=== PATIENT | male | born 1965 | race Caucasian/White ===

== ENCOUNTER 2017-08-01 10:19 | Observation (INO) | payer BC ==
[2017-08-01] MEDS ORDERED: ASPIRIN 81 MG CHEWABLE TABLET PO ONE (10:24)
[2017-08-01] MEDS: NITROGLYCERIN 0.4MG SL TABLET #25 BTL SL PRN ×3 (10:32→10:42)
[2017-08-01 10:44] LABS: BASO % 0.2 % (0-6); EOS % 3.5 % (0-6); GRAN % 59.4 % (47-80); HEMATOCRIT 45.9 % (42.0-52.0); HEMOGLOBIN 15.4 gm/dl (14.0-18.0); LYMPH % 29.2 % (16-45); MEAN CELL VOLUME 88.3 fl (81-97); MEAN CORPUSCULAR HEMOGLOBIN 29.6 pg (27-33); MEAN CORPUSCULAR HGB CONC 33.6 g/dl (32-36); MEAN PLATELET VOLUME 10.9 fl (7.4-10.4); MONO % 7.7 % (0-9); PLATELET COUNT 236 K/uL (130-400); RED CELL DISTRIBUTION WIDTH 13.2 % (11.5-14.5); WHITE BLOOD COUNT W/O DIFF 5.7 K/uL (4.2-12.2)
--- NOTE | 2017-08-01 11:01 | Emergency Department Record ---
History of Present Illness - General Chief complaint: Lower Extremity Pain Stated complaint: LEG PAIN Time Seen by Provider: 08/01/17 10:24 Source: Patient Mode of Arrival: Wheelchair Limitations: No limitations - History of Present Illness Initial comments: pt was brought over from [facility]. he had been seen by them yesterday for chest pain. he comes back today c/o chest pain and leg pain and weakness. he denies numbness MD Complaint: Extremity pain, Other Onset/Timin -: Hour(s) Location: Right, Lower Leg History of Same: No Severity scale (1-10): 6 Quality: Aching, Sharp Consistency: Constant Improves with: Nothing Worsens with: Nothing Associated Symptoms: Chest pain - Related Data Allergies Allergy/AdvReac Type Severity Reaction Status Date / Time naproxen [From Naprosyn] Allergy ABDOMINAL Unverified 08/01/17 10:05 PAIN Travel Screening - Travel/Exposure Within Last 30 Days Have you traveled within the last 30 days?: No Review of Systems Reviewed: No additional complaints except as noted below Constitutional: Reports: As per HPI. Denies: Chills, Fever, Malaise, Night sweats, Weakness, Weight change Eyes: Reports: As per HPI. Denies: Eye discharge, Eye pain, Photophobia, Vision change ENT: Reports: As per HPI. Denies: Congestion, Dental pain, Ear pain, Epistaxis , Hearing loss, Throat pain Respiratory: Reports: As per HPI. Denies: Cough, Dyspnea, Hemoptysis, Stridor, Wheezes Cardiovascular: Reports: As per HPI. Denies: Arrhythmia, Chest pain, Dyspnea on exertion, Edema, Murmurs, Orthopnea, Palpitations, Paroxysmal nocturnal dyspnea, Rheumatic Fever, Syncope Endocrine: Reports: As per HPI. Denies: Fatigue, Heat or cold intolerance, Polydipsia, Polyuria Gastrointestinal: Reports: As per HPI. Denies: Abdominal pain, Constipation, Diarrhea, Hematemesis, Hematochezia, Melena, Nausea, Vomiting Genitourinary: Reports: As per HPI. Denies: Dysuria, Frequency, Hematuria, Incontinence, Retention, Testicular pain, Testicular mass, Urgency Musculoskeletal: Reports: As per HPI. Denies: Arthralgia, Back pain, Gout, Joint swelling, Myalgia, Neck pain Skin: Reports: As per HPI. Denies: Bruising, Change in color, Change in hair/ nails, Lesions, Pruritus, Rash Neurological: Reports: As per HPI. Denies: Abnormal gait, Confusion, Headache, Numbness, Paresthesias, Seizure, Tingling, Tremors, Vertigo, Weakness Psychiatric: Reports: As per HPI. Denies: Anxiety, Auditory hallucinations, Depression, Homicidal thoughts, Suicidal thoughts, Visual hallucinations Hematological/Lymphatic: Reports: As per HPI. Denies: Anemia, Blood Clots, Easy bleeding, Easy bruising, Swollen glands Past Medical History - SOCIAL HISTORY Smoking Status: Former smoker Alcohol Use: Rare Drug Use: None - RESPIRATORY Hx Respiratory Disorders: No - CARDIOVASCULAR Hx Cardio Disorders: Yes Hx Hypertension: Yes - NEURO Hx Neuro Disorders: No - GI Hx GI Disorders: No - Hx Genitourinary Disorders: No - ENDOCRINE Hx Endocrine Disorders: No - MUSCULOSKELETAL Hx Musculoskeletal Disorders: No - PSYCH Hx Psych Problems: No - HEMATOLOGY/ONCOLOGY Hx Hematology/Oncology Disorders: No Family Medical History Any Significant Family History?: Yes Hx Cancer: Father Hx Diabetes: Mother, Brother/Sister Hx HTN: Father Physical Exam - General General Appearance: Alert, Oriented x3, Cooperative, Mild distress - Head Head exam: Normal inspection - Eye Eye exam: Normal appearance, PERRL, EOMI Pupils: Normal accommodation - ENT ENT exam: Normal exam, Mucous membranes moist, Normal external ear exam, Normal orophraynx, TM's normal bilaterally Ear exam: Normal external inspection. negative: External canal tenderness Nasal Exam: Normal inspection. negative: Discharge, Sinus tenderness Mouth exam: Normal external inspection, Tongue normal Teeth exam: Normal inspection. negative: Dental caries Throat exam: Normal inspection. negative: Tonsillar erythema, Tonsillar exudate - Neck Neck exam: Normal inspection, Full ROM. negative: Tenderness - Respiratory Respiratory exam: Normal lung sounds bilaterally. negative: Respiratory distress - Cardiovascular Cardiovascular Exam: Regular rate, Normal rhythm, Normal heart sounds - GI/Abdominal GI/Abdominal exam: Soft, Normal bowel sounds. negative: Tenderness - Rectal Rectal exam: Deferred - exam: Deferred - Extremities Extremities exam: Normal inspection, Full ROM, Normal capillary refill. negative: Tenderness - Back Back exam: Reports: Normal inspection, Full ROM. 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 pts leg symptoms appear to be more radicular in nature Medical Decision Making - Lab Data Result diagrams: 08/01/17 10:20 08/01/17 10:20 Lab Results 08/01/17 Range/Units 10:20 WBC 5.7 (4.2-12.2) K/uL RBC 5.20 (4.40-5.70) M/uL Hgb 15.4 (14.0-18.0) gm/dl Hct 45.9 (42.0-52.0) % MCV 88.3 (81-97) fl MCH 29.6 (27-33) pg MCHC 33.6 (32-36) g/dl RDW 13.2 (11.5-14.5) % Plt Count 236 (130-400) K/uL MPV 10.9 H (7.4-10.4) fl Gran % 59.4 (47-80) % Lymphocytes % 29.2 (16-45) % Monocytes % 7.7 (0-9) % Eosinophils % 3.5 (0-6) % Basophils % 0.2 (0-6) % Disposition Disposition: Admit Clinical Impression: Sciatic leg pain Chest pain Qualifiers: Chest pain type: unspecified Qualified Code(s): R07.9 - Chest pain, unspecified Disposition: Still a Patient at [facility] Decision to Admit: Admit from ER Decision to Admit Date: 08/01/17 Decision to Admit Time: 12:30 Forms: Patient Portal Access Quality - Quality Measures Quality Measures: N/A - Blood Pressure Screening Does Patient Have Any of the Following: No Blood Pressure Classification: Hypertensive Reading Systolic Measurement: 153 Diastolic Measurement: 98 Screening for High Blood Pressure: < First Hypertensive BP, F/U Documented > [ [id number]] First Hypertensive Follow-up Interventions: Follow-up with rescreen GT 1 day and LT 4 weeks.
[2017-08-01 11:29] LABS: CKMB 8.2 ng/mL (<6.73); CREATININE 0.9 mg/dL (0.7-1.2); EST GLOMERULAR FILTRATION RATE > 60 mL/min; GLUCOSE,RANDOM 111 mg/dL (74-109)
[2017-08-01 11:31] LABS: TROPONIN I < 0.30 ng/mL (0.00-0.300)
[2017-08-01 11:45] LABS: CREATINE PHOSPHOKINASE 193 U/L (39-308)
--- NOTE | 2017-08-01 13:23 | RADIOLOGY REPORT ---
EXAM: CHEST, TWO VIEWS HISTORY: DIFFICULTY BREATHING. TECHNIQUE: Frontal and lateral views of the chest were performed. FINDINGS: The heart size is normal. The lung zheng are clear. No infiltrate or pleural effusion. IMPRESSION: NO ACUTE DISEASE PROCESS. JOB NUMBER: [id number] [facility]TDD
--- NOTE | 2017-08-01 13:25 | CT SCAN REPORT ---
EXAM: CT OF THE BRAIN WITHOUT CONTRAST HISTORY: PAIN. TECHNIQUE: Sequential axial images were obtained from the foramen magnum to the vertex without contrast administration. FINDINGS: The brain volume is normal. No large territorial infarct, hemorrhage , mass effect, or midline shift. No extraaxial fluid collection. The orbits, paranasal sinuses, and mastoid air cells are normal. IMPRESSION: NO ACUTE INTRACRANIAL ABNORMALITY. JOB NUMBER: [id number] [facility]
--- NOTE | 2017-08-01 13:26 | RADIOLOGY REPORT ---
EXAM: LUMBAR SPINE HISTORY: BACK PAIN. TECHNIQUE: AP, lateral and oblique views of the lumbar spine were performed. FINDINGS: There is normal vertebral body height and alignment. No evidence of fracture. No spondylolysis or spondylolisthesis. The neural foramen are patent. IMPRESSION: NEGATIVE LUMBAR SPINE EXAMINATION. JOB NUMBER: [id number] [facility]
[2017-08-01] MEDS ORDERED: ACETAMINOPHEN 500 MG TABLET PO PRN (14:05)
[2017-08-01] MEDS ORDERED: TEMAZEPAM 15 MG CAPSULE PO PRN (14:05)
[2017-08-01] MEDS ORDERED: NITROGLYCERIN 0.4MG SL TABLET #25 BTL SL PRN (14:05)
[2017-08-01] MEDS: AMLODIPINE BESYLATE 5MG TAB PO SCH (14:41)
[2017-08-01 16:17] LABS: BLOOD UREA NITROGEN 25 mg/dL (6-20)
--- NOTE | 2017-08-01 18:15 | History & Physical ---
History of Present Illness - Date of Service Date of Service for History & Physical: 08/01/17 - History of Present Illness Admitting Diagnosis: chest pain History of Present Illness: 51yo male with CC of left sided chest discomfort. He has history of uncontrolled blood pressure and is a former smoker. Patient was seen in [facility] on 07/31/17 with several day history of constant left sided chest discomfort. EKG was performed that showed NSR without ST changes. He was started on norvasc 10mg daily and scheduled for outpatient echo. Later that evening he started having some aching pain in his right anterior knee and medial ankle. The pain continued so he returned to [facility] yesterday. Due to his continued chest pain he was taken to the ED. While in the ED, patient had repeat EKG that continued to show normal sinus rhythm without ST changes. 1st set of cardiac enzymes showed troponin wnl range. CKMB index slightly high however total cpk wnl range. Patient had CXR which was negative for acute process. He was given full dose aspirin and nitro with resolution of his chest pain. Due to the lower extremity pain he also received head CT, lumbar XR that were negative for acute changes. Patient was admitted for serial enzymes 08/01/17- Patient states his chest pain has practically resolved. states it is maybe a 1 on pain scale. describes it as a discomfor in the left lower sternal area. the pain is constant and does not radiate. He says it is unchanged with rest or activity. He denies any shortness of breath, arm numbness, jaw pain, lower extremity swelling. He says the pain in the RLE has improved. reports is more like an ache in the medial, anterior portion of the knee and and medial anterior ankle. 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 denies any numbness/tingling in the RLE, no shooting type pain, no calf pain or swelling, and no rash or skin changes. pcp: [facility] Travel Screening - Travel/Exposure Within Last 30 Days Have you traveled within the last 30 days?: No - Travel/Exposure Within Last Year Have you traveled outside the [place] in the last year?: No - Additonal Travel Details Have you been exposed to anyone with a communicable illness?: No - Travel Symptoms Symptom Screening: None Review of Systems Constitutional: Reports: As per HPI. Denies: Chills, Fever, Malaise, Night sweats, Weakness, Weight change Eyes: Reports: As per HPI. Denies: Eye discharge, Eye pain, Photophobia, Vision change ENT: Reports: As per HPI. Denies: Congestion, Dental pain, Ear pain, Epistaxis , Hearing loss, Throat pain Respiratory: Reports: As per HPI. Denies: Cough, Dyspnea, Hemoptysis, Stridor, Wheezes Cardiovascular: Reports: As per HPI. Denies: Arrhythmia, Chest pain, Dyspnea on exertion, Edema, Murmurs, Orthopnea, Palpitations, Paroxysmal nocturnal dyspnea, Rheumatic Fever, Syncope Endocrine: Reports: As per HPI. Denies: Fatigue, Heat or cold intolerance, Polydipsia, Polyuria Gastrointestinal: Reports: As per HPI. Denies: Abdominal pain, Constipation, Diarrhea, Hematemesis, Hematochezia, Melena, Nausea, Vomiting Genitourinary: Reports: As per HPI. Denies: Dysuria, Frequency, Hematuria, Incontinence, Retention, Testicular pain, Testicular mass, Urgency Musculoskeletal: Reports: As per HPI. Denies: Arthralgia, Back pain, Gout, Joint swelling, Myalgia, Neck pain Skin: Reports: As per HPI. Denies: Bruising, Change in color, Change in hair/ nails, Lesions, Pruritus, Rash Neurological: Reports: As per HPI. Denies: Abnormal gait, Confusion, Headache, Numbness, Paresthesias, Seizure, Tingling, Tremors, Vertigo, Weakness Psychiatric: Reports: As per HPI. Denies: Anxiety, Auditory hallucinations, Depression, Homicidal thoughts, Suicidal thoughts, Visual hallucinations Hematological/Lymphatic: Reports: As per HPI. Denies: Anemia, Blood Clots, Easy bleeding, Easy bruising, Swollen glands Past Medical History - SOCIAL HISTORY Smoking Status: Former smoker Alcohol Use: Rare Drug Use: None - RESPIRATORY Hx Respiratory Disorders: No - CARDIOVASCULAR Hx Cardio Disorders: Yes Hx Hypertension: Yes - NEURO Hx Neuro Disorders: No - GI Hx GI Disorders: No - Hx Genitourinary Disorders: No - ENDOCRINE Hx Endocrine Disorders: No - MUSCULOSKELETAL Hx Musculoskeletal Disorders: No - PSYCH Hx Psych Problems: No - HEMATOLOGY/ONCOLOGY Hx Hematology/Oncology Disorders: No Family Medical History Any Significant Family History?: Yes Hx Cancer: Father Hx Diabetes: Mother, Brother/Sister Hx HTN: Father H&P Meds/Allergies - Allergies Allergies: Allergies Allergy/AdvReac Type Severity Reaction Status Date / Time naproxen [From Naprosyn] Allergy ABDOMINAL Unverified 08/01/17 10:05 PAIN - Active Medications Active Medications: Current Medications Acetaminophen (Tylenol 500mg Tab) 1,000 mg PO Q6H PRN PRN Reason: PAIN/TEMP Amlodipine Besylate (Norvasc) 10 mg PO DAILY [facility] Last Admin: 08/01/17 14:41 Dose: 10 mg Aspirin (Ecotrin (Ec)) 325 mg PO DAILY [facility] Nitroglycerin (Nitrostat 0.4mg) 0.4 mg SL Q5MIN PRN PRN Reason: CHEST PAIN Temazepam (Restoril) 15 mg PO QHS PRN PRN Reason: INSOMNIA Physical Exam - Vital Signs Vital Signs: Vital Signs - Last 24 Hrs Temp Pulse Resp BP BP Pulse Ox 08/01/17 16:05 98.0 F 74 18 154/89 96 08/01/17 14:21 20 08/01/17 14:05 97.8 F 68 18 153/95 97 08/01/17 13:53 142/81 - General General Appearance: Alert, Oriented x3, Cooperative, No acute distress Limitations: No limitations - Head Head exam: Normal inspection - Eye Eye exam: Normal appearance, PERRL, EOMI Pupils: Normal accommodation - ENT ENT exam: Normal exam, Mucous membranes moist, Normal external ear exam, Normal orophraynx, TM's normal bilaterally Ear exam: Normal external inspection. negative: External canal tenderness Nasal Exam: Normal inspection. negative: Discharge, Sinus tenderness Mouth exam: Normal external inspection, Tongue normal Teeth exam: Normal inspection. negative: Dental caries Throat exam: Normal inspection. negative: Tonsillar erythema, Tonsillar exudate - Neck Neck exam: Normal inspection, Full ROM. negative: Tenderness - Respiratory Respiratory exam: Normal lung sounds bilaterally. negative: Respiratory distress - Cardiovascular Cardiovascular Exam: Regular rate, Normal rhythm, Normal heart sounds - GI/Abdominal GI/Abdominal exam: Soft, Normal bowel sounds. negative: Tenderness - Rectal Rectal exam: Deferred - exam: Deferred - Extremities Extremities exam: Normal inspection, Full ROM, Normal capillary refill. negative: Calf tenderness, Joint swelling, Pedal edema, Tenderness - Back Back exam: Reports: Normal inspection, Full ROM. Denies: Muscle spasm, Rash noted, Tenderness - Neurological Neurological exam: Alert, Normal gait, Oriented X3, Reflexes normal - Psychiatric Psychiatric exam: Normal affect, Normal mood - Skin Skin exam: Dry, Intact, Normal color, Warm Results - Labs Result Diagrams: 08/01/17 10:20 08/01/17 10:20 VTE H&P Assessment - Risk for VTE Risk for VTE: Yes Risk Level: Low Risk Assessment Date: 08/01/17 Risk Assessment Time: 19:00 VTE Orders Placed or Will Be Placed: Yes Plan - Detailed Diagnosis and Plan (1) Chest pain Current Visit: Yes Status: Acute Qualifiers: Chest pain type: unspecified Qualified Code(s): R07.9 - Chest pain, unspecified Base Code: R07.9 - CHEST PAIN, UNSPECIFIED Comment: 08/01/17- resolving. EKG showign NSR without ST changes. CE showing troponin within normal range. CKMB relative index slightly elevated, but total CPK wnl. received full dose aspirin and one dose of SL nitro. Patient is low risk for ASCVD with unctonrolled htn being his only RF. -continue serial enzymes -continue cardiac monitoring -repeat EKG qam -vitals q8H (2) Hypertension Current Visit: Yes Status: Acute Qualifiers: Hypertension type: essential hypertension Qualified Code(s): I10 - Essential (primary) hypertension Base Code: I10 - ESSENTIAL (PRIMARY) HYPERTENSION Comment: 08/01/17- uncontrolled. Patient has been noncompliant with pcp follow up. was seen in [facility] on 07/31 and prescribed norvasc which he has not started yet. -start norvasc 10mg po daily -continue to monitor BP -he will need outpatient follow up for continued management of BP (3) Right leg pain Current Visit: Yes Status: Acute Base Code: M79.604 - PAIN IN RIGHT LEG Comment: 08/01/17- resolving. denies recent injury. having aching type pain of the right medial knee and ankle. no swelling, rash or nubmness tingling. says the pain is minimal and does not even want tylenol for it. 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 does not sound radicular in nature. history is not c/w with DVT. -will continue to monitor for new or worsening symptoms -tylenol ordered for pain control but patient states pain is controlled without (4) DVT prophylaxis Current Visit: Yes Status: Acute Base Code: [id number] - Comment: 08/01/17- patient is low risk for DVT. -will encourage ambulation -wander add lovenox if stay >24H anticipated (5) Full code status Current Visit: Yes Status: Acute Base Code: Z78.9 - OTHER SPECIFIED HEALTH STATUS Comment: 08/01/17- patient is full code
[2017-08-01 18:36] LABS: TROPONIN I < 0.30 ng/mL (0.00-0.300)
[2017-08-01 18:53] LABS: CREATINE PHOSPHOKINASE 161 U/L (39-308)
[2017-08-02 02:41] LABS: CKMB 6.6 ng/mL (<6.73)
[2017-08-02 02:43] LABS: TROPONIN I < 0.30 ng/mL (0.00-0.300)
[2017-08-02 03:00] LABS: CREATINE PHOSPHOKINASE 141 U/L (39-308)
--- NOTE | 2017-08-02 09:28 | Discharge Summary ---
Providers Discharge Summary Date: 08/02/17 Date of admission: 08/01/17 13:33 Expected Date of Discharge: 08/02/17 Attending physician: Jag Sabillon Primary care physician: Minna Navarro Physical Exam - Vital Signs Vital Signs: Vital Signs - Last 24 Hrs Temp Pulse Pulse Resp BP BP Pulse Ox 08/02/17 06:00 97.5 F L 66 18 139/81 96 08/02/17 00:00 97.6 F 74 18 159/86 96 08/01/17 21:00 75 75 18 08/01/17 20:05 98.1 F 76 18 159/86 96 08/01/17 16:05 98.0 F 74 18 154/89 96 08/01/17 14:21 20 08/01/17 14:05 97.8 F 68 18 153/95 97 08/01/17 13:53 142/81 - General General Appearance: Alert, Oriented x3, Cooperative, No acute distress Limitations: No limitations - Head Head exam: Normal inspection - Eye Eye exam: Normal appearance, PERRL, EOMI Pupils: Normal accommodation - ENT ENT exam: Normal exam, Mucous membranes moist, Normal external ear exam, Normal orophraynx, TM's normal bilaterally Ear exam: Normal external inspection. negative: External canal tenderness Nasal Exam: Normal inspection. negative: Discharge, Sinus tenderness Mouth exam: Normal external inspection, Tongue normal Teeth exam: Normal inspection. negative: Dental caries Throat exam: Normal inspection. negative: Tonsillar erythema, Tonsillar exudate - Neck Neck exam: Normal inspection, Full ROM. negative: Tenderness - Respiratory Respiratory exam: Normal lung sounds bilaterally. negative: Respiratory distress - Cardiovascular Cardiovascular Exam: Regular rate, Normal rhythm, Normal heart sounds - GI/Abdominal GI/Abdominal exam: Soft, Normal bowel sounds. negative: Tenderness - Rectal Rectal exam: Deferred - exam: Deferred - Extremities Extremities exam: Normal inspection, Full ROM, Normal capillary refill. negative: Calf tenderness, Joint swelling, Pedal edema, Tenderness - Back Back exam: Reports: Normal inspection, Full ROM. Denies: Muscle spasm, Rash noted, Tenderness - Neurological Neurological exam: Alert, Normal gait, Oriented X3, Reflexes normal - Psychiatric Psychiatric exam: Normal affect, Normal mood - Skin Skin exam: Dry, Intact, Normal color, Warm Hospitalization - Hospitalization Admission Diagnosis: chest pain - Problem List/Discharge Diagnosis (1) Chest pain Status: Acute Discharge Diagnosis: Chest pain type: unspecified Qualified Code(s): R07.9 - Chest pain, unspecified Base Code: R07.9 - CHEST PAIN, UNSPECIFIED Comment: 08/02/17- EKG continue to show NSR without ST changes. All 3 sets of enzymes returned. Troponin all within normal range. CKMB relative index slightly elevated, but total CPK wnl and trending downward. Patient is low risk for ASCVD with unctonrolled htn being his only RF. -will plan to discharge home today -Sharon, personal carer for the [facility] clinic, will contact patient to schedule office appointment next week -he has echocardiogram scheduled for next Friday. -will plan to follow up next week. (2) Hypertension Status: Acute Discharge Diagnosis: Hypertension type: essential hypertension Qualified Code(s): I10 - Essential (primary) hypertension Base Code: I10 - ESSENTIAL (PRIMARY) HYPERTENSION Comment: 08/02/17- improved following one dose of norvasc 10mg. He has outpatient prescription already. -continue norvasc 10mg po daily -follow up next week for htn in the clinic (3) Right leg pain Status: Acute Base Code: M79.604 - PAIN IN RIGHT LEG Comment: 08/02/17- continues to improve. says the knee no longer hurst but ankle still has an ache at about a 1 on the medial side. still no swelling, rash or nubmness tingling. says the pain is minimal and does not even want tylenol for it. 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 does not sound radicular in nature. history is not c/w with DVT. -will continue conservative mgmt with rest and otc pain medication as needed -follow up in the clinic this week for recheck (4) DVT prophylaxis Status: Acute Base Code: [id number] - Comment: 08/02/17- patient was low risk for DVT. -ambulation encouraged -stay <24H so anticoagulation was not initiated (5) Full code status Status: Acute Base Code: Z78.9 - OTHER SPECIFIED HEALTH STATUS Comment: 08/02- patient is full code - Hospitalization Course Disposition: Home, Self-Care Hospital Course: 51yo male with CC of left sided chest discomfort. He has history of uncontrolled blood pressure and is a former smoker. Patient was seen in [facility] on 07/31/17 with several day history of constant left sided chest discomfort. EKG was performed that showed NSR without ST changes. He was started on norvasc 10mg daily and scheduled for outpatient echo. Later that evening he started having some aching pain in his right anterior knee and medial ankle. The pain continued so he returned to [facility] yesterday. Due to his continued chest pain he was taken to the ED. While in the ED, patient had repeat EKG that continued to show normal sinus rhythm without ST changes. 1st set of cardiac enzymes showed troponin wnl range. CKMB index slightly high however total cpk wnl range. Patient had CXR which was negative for acute process. He was given full dose aspirin and nitro with resolution of his chest pain. Due to the lower extremity pain he also received head CT, lumbar XR that were negative for acute changes. Patient was admitted for serial enzymes 08/01/17- Patient states his chest pain has practically resolved. states it is maybe a 1 on pain scale. describes it as a discomfor in the left lower sternal area. the pain is constant and does not radiate. He says it is unchanged with rest or activity. He denies any shortness of breath, arm numbness, jaw pain, lower extremity swelling. He says the pain in the RLE has improved. reports is more like an ache in the medial, anterior portion of the knee and and medial anterior ankle. 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 denies any numbness/tingling in the RLE, no shooting type pain, no calf pain or swelling, and no rash or skin changes. 08/02/17- Patient states he feels a little better than yesterday. He says the chest pain is less than a one and knee pain resolved. He is still having mild medial ankle pain. he denies any shortness of breath, headache, leg swelling. pcp: [facility] clinic Abnormal Labs: Abnormal Lab Results 08/01/17 08/02/17 Range/Units 18:09 02:00 CK-MB (CK-2) 7.0 H (<6.73) ng/mL CK-MB (CK-2) Rel Index 4.30 H 4.60 H (0-4) % Condition at Discharge: (2) Stable Discharge Plan - Discharge Instructions Activity at Discharge: Resume Usual Activities As Tolerated Diet at Discharge: Low Fat, Low Cholesterol, Low Salt Diet Instructions: Chest Pain (DC), Low Fat Diet (DC), Heart Healthy Diet (DC), Cholesterol and Your Health (GEN) Additional Instructions: 2 Activity: Resume Usual Activities As Tolerated 2 Diet: Low Fat, Low Cholesterol Low Salt Diet 2 Consults: [] 2 Follow Up: [Sharon, personal carer for the [facility] family practice, will call you on Friday to schedule follow up in the clinic. ] 2 Dressing/Wound Care: (Type) (Change) 2 Additional: [] Please continue the norvasc 10mg by mouth daily starting tomorrow Please have your echocardiogram done this Friday as previously scheduled Please call with any questions or concerns Return to ED for any new or worsening symptoms Quality Measures - Quality Measures Quality Measures: Documentation of Current Medications in Medical Record, Screening for High Blood Pressure and F/U Documented - Current Medications Quality Measure: Measure #130: Documentation of Current Medications Documentation of Current Medications: <Current Medications Documented/Reviewed> [G8427] - Blood Pressure Screening Quality Measure: Screening for High Blood Pressure and Follow-Up Documented Does Patient Have Any of the Following: Active Dx of HTN Blood Pressure Classification: Pre-Hypertensive BP Reading Systolic Measurement: 142 Diastolic Measurement: 81 Screening for High Blood Pressure: Patient Exclusion, Hx of HTN [G9744] - Elder Abuse Suspicion Index EASI Reference Information: Alok DICK, Joao C, Binh D, Abby Pitts.Development and validation of a tool to assist physicians identification of elder abuse: The Elder Abuse Suspicion Index (EASI ). Journal of Elder Abuse and Neglect, 2008; 20 (3): 276-300.
[2017-08-02] MEDS: AMLODIPINE BESYLATE 5MG TAB PO SCH (09:35)
[2017-08-02] MEDS ORDERED: ASPIRIN 325 MG TAB ENTERIC-COATED PO SCH (10:00)
== END 2017-08-02 10:50 | disposition home or self-care (01) ==
LOC: ER 10:19 → MEDSURG 13:33
PROVIDERS: ADMIT Internal Medicine; ATTEND Internal Medicine
DX: R07.9 Chest pain, unspecified (principal); I10 Essential (primary) hypertension; M79.604 Pain in right leg; Z87.891 Personal history of nicotine dependence
CPT/HCPCS: 99285 ×2; 82550 ×2; 85025; 82553 ×2; 84484 ×2; 80048; 80061; 85379; 71020; 72100; 70450; 93005; 93010; G0378 ×2; 99220

== ENCOUNTER 2019-12-07 17:51 | Emergency (ER) | payer BC ==
[2019-12-07] MEDS ORDERED: ACETAMINOPHEN 500 MG TABLET PO ONE (17:59)
[2019-12-07] MEDS ORDERED: 0.9 % SODIUM CHLORIDE 1000ML 1,000 ML IV SCH (18:00)
[2019-12-07] MEDS ORDERED: ACETAMINOPHEN 1,000 MG/100 ML BTL IVPB ONE (18:03)
--- NOTE | 2019-12-07 18:04 | Emergency Department Record ---
History of Present Illness - General Chief complaint: Facial Swelling Stated complaint: high blood pressure Time Seen by Provider: 12/07/19 17:55 Source: Patient Mode of Arrival: Ambulatory Limitations: No limitations - History of Present Illness Initial Comments: 54 yo male presents to ED for evaluation of sore throat symptoms and low-grade fever symptoms x 1 days. Patient denies difficulty in breathing symptoms, does report non-productive cough symptoms. Patient denies receiving an influenza vaccination this year. Patient denies health problems other than HTN, reports that he has not taken BP medication in months. Patient denies abdominal pain, vomiting, or abdominal pain symptoms. MD Complaint: Other Onset/Timin -: Days(s) Exposure: Unknown Severity: Moderate Treatment Prior to Arrival: None - Related Data Home Medications Medication Instructions Recorded Confirmed Last Taken No Home Med [NO HOME MEDS] 12/07/19 12/07/19 Unknown Allergies Allergy/AdvReac Type Severity Reaction Status Date / Time naproxen [From Naprosyn] Allergy ABDOMINAL Unverified 11/05/18 12:31 PAIN Review of Systems Constitutional: Reports: Fever. Denies: Chills, Malaise, Night sweats Eyes: Denies: Eye discharge, Eye pain ENT: Denies: Congestion, Ear pain, Epistaxis Respiratory: Reports: Cough. Denies: Dyspnea Cardiovascular: Denies: Chest pain, Dyspnea on exertion Endocrine: Denies: Fatigue, Heat or cold intolerance Gastrointestinal: Denies: Abdominal pain, Nausea, Vomiting Genitourinary: Denies: Incontinence, Retention Musculoskeletal: Denies: Arthralgia, Back pain Skin: Denies: Bruising, Change in color Neurological: Denies: Abnormal gait, Confusion, Headache, Tingling, Tremors Psychiatric: Denies: Anxiety Hematological/Lymphatic: Denies: Anemia, Blood Clots Past Medical History - SOCIAL HISTORY Smoking Status: Former smoker Drug Use: None - RESPIRATORY Hx Respiratory Disorders: No - CARDIOVASCULAR Hx Cardio Disorders: Yes Hx Hypertension: Yes - NEURO Hx Neuro Disorders: No - GI Hx GI Disorders: No - Hx Genitourinary Disorders: No - ENDOCRINE Hx Endocrine Disorders: No - MUSCULOSKELETAL Hx Musculoskeletal Disorders: No - PSYCH Hx Psych Problems: No - HEMATOLOGY/ONCOLOGY Hx Hematology/Oncology Disorders: No Family Medical History Hx Cancer: Father Hx Diabetes: Mother, Brother/Sister Hx HTN: Father Physical Exam - General General Appearance: Alert, Oriented x3, Cooperative, Mild distress Limitations: No limitations - Head Head exam: Atraumatic, Normocephalic, Normal inspection Head exam detail: negative: Abrasion, Contusion, Pal's sign, General tenderness, Hematoma, Laceration - Eye Eye exam: Normal appearance. negative: Conjunctival injection, Periorbital swelling, Periorbital tenderness, Scleral icterus - ENT Ear exam: negative: Auricular hematoma, Auricular trauma Nasal Exam: negative: Active bleeding, Discharge, Dried blood, Foreign body Mouth exam: negative: Drooling, Laceration, Muffled voice, Tongue elevation Throat exam: Other (Cannot visualize the posterior pharynx on examination) - Neck Neck exam: Normal inspection. negative: Meningismus, Tenderness - Respiratory Respiratory exam: Normal lung sounds bilaterally. negative: Respiratory distress, Rhonchi, Stridor, Wheezes - Cardiovascular Cardiovascular Exam: Normal rhythm, Normal heart sounds, Tachycardia - GI/Abdominal GI/Abdominal exam: Soft. negative: Distended, Rebound, Rigid, Tenderness - Rectal Rectal exam: Deferred - exam: Deferred - Extremities Extremities exam: Normal inspection. negative: Pedal edema, Tenderness - Back Back exam: Denies: CVA tenderness (R), CVA tenderness (L) - Neurological Neurological exam: Alert, Normal gait, Oriented X3 - Psychiatric Psychiatric exam: Normal affect, Normal mood - Skin Skin exam: Normal color. negative: Abrasion Type of lesion: negative: abrasion Course - Reevaluation(s) Reevaluation #1: 12/07/19 18:28 Laboratory studies were reviewed and appear grossly unremarkable for an acute process. Influenza Negative Rapid strep negative Patient is currently in CT for further evaluation of the posterior pharynx. Reevaluation #2: 12/07/19 19:15 CT Soft-Tissue Neck: Edema of the epiglottis Enlargement of the lingual tonsil Patient was updated on all results, Rocephin and Decadron ordered to infuse. Will initiate transfer to [facility] for ENT evaluation. Reevaluation #3: 12/07/19 19:33 Case was discussed with Dr. Beltran, will accept the patient for further evaluation. Medical Decision Making - Lab Data Result diagrams: 12/07/19 12:06 12/07/19 12:06 Disposition Disposition: Transfer Clinical Impression: Acute epiglottitis Qualifiers: Airway obstruction: with obstruction Qualified Code(s): J05.11 - Acute epiglottitis with obstruction Disposition: Acute Care Hospital Transfer Transfer To: [facility] Reason For Transfer: ENT consultation, admission for airway compromise Accepting Physician: Ruby Time Discussed w/Accepting Physician: 19:33 Condition: (2) Stable Forms: Patient Portal Access Time of Disposition: 19:33 Quality - Quality Measures Quality Measures: N/A - Blood Pressure Screening Does Patient Have Any of the Following: Active Dx of HTN Blood Pressure Classification: Hypertensive Reading Systolic Measurement: 197 Diastolic Measurement: 109 Screening for High Blood Pressure: Patient Exclusion, Hx of HTN [G9744]
[2019-12-07 18:11] LABS: ABSOLUTE NEUTROPHIL COUNT 9.35; HEMATOCRIT 46.3 % (42.0-52.0); HEMOGLOBIN 15.1 gm/dl (14.0-18.0); MEAN CORPUSCULAR HGB CONC 32.6 g/dl (32-36); MEAN PLATELET VOLUME 10.4 fl (7.4-10.4); PLATELET COUNT 229 K/uL (130-400); RED CELL DISTRIBUTION WIDTH 13.6 % (11.5-14.5); WHITE BLOOD COUNT W/O DIFF 11.5 K/uL (4.2-12.2)
[2019-12-07 18:14] LABS: STREP A SCREEN NEGATIVE (NEGATIVE)
[2019-12-07 18:23] LABS: INFLUENZA A NEGATIVE (NEGATIVE); INFLUENZA B NEGATIVE (NEGATIVE)
[2019-12-07 18:27] LABS: BLOOD UREA NITROGEN 17 mg/dL (6-20); CREATININE 0.9 mg/dL (0.7-1.2); EST GLOMERULAR FILTRATION RATE > 60 mL/min
[2019-12-07 18:28] LABS: TOTAL PROTEIN 7.4 g/dL (6.6-8.7)
[2019-12-07 18:29] LABS: GLUCOSE,RANDOM 122 mg/dL (74-109)
[2019-12-07 18:32] LABS: ALB/GLOB RATIO 1.7 (1.1-1.8); ALBUMIN 4.7 g/dL (4.0-5.0); ALKALINE PHOSPHATASE 90 U/L (40-129); ALT/SGPT 20 U/L (<41); AST/SGOT 19 U/L (10.0-50.0)
[2019-12-07 18:40] LABS: ANISOCYTOSIS 1+; PLATELET ESTIMATE NORMAL (NORMAL)
[2019-12-07 18:41] LABS: TOXIC GRANULATION 1+
--- NOTE | 2019-12-07 19:13 | CT SCAN REPORT ---
EXAMINATION: CT Neck Soft Tissues with IV Contrast EXAM DATE: 12/07/2019 6:44 PM TECHNIQUE: Standard protocol CT images of the neck were obtained with intravenous contrast. Sagittal and coronal images were reconstructed. IV Contrast: The amount and type of contrast are recorded in t he medical record. INDICATION: Pharyngitis COMPARISON: CT of the head 08/01/2017 ENCOUNTER: Not applicable FINDINGS: There is mild edema of the epiglottis (601:53). There is enlargement of the lingual tonsil. No absces s. Patent airway. Pharyngeal and laryngeal structures are otherwise unremarkable. Imaged brain parenchyma is unremarkable. The orbits, paranasal sinuses, mastoid air cells, middle ear cavities are unremarkable. The parotid glands and submandibular glands are unremarkable. A 1.6 cm right thyroid low-attenuation nodule. No abnormally enlarged lymph nodes. No osteolytic or blastic lesions. Lung apices are unremarkable. IMPRESSION: 1. Mild edema and thickening of the epiglottis, although less than typical for epiglottitis. Enlarge d lingual tonsil. -No abscess identified. -Patent airway. Critical results protocol initiated at 7:07 PM Dictated by: MAGDI FRIAS MD on 12/07/2019 6:53 PM. .
[2019-12-07] MEDS ORDERED: CEFTRIAXONE 1GM/50ML BAG 1 GM/50 ML BAG IVPB ONE (19:23)
[2019-12-07] MEDS ORDERED: DEXAMETHASONE SOD PHOSPHATE 10MG/ML VIAL IVP ONE (19:23)
== END 2019-12-07 20:15 | disposition short-term general hospital (02) ==
LOC: ER 17:51
DX: J05.11 Acute epiglottitis with obstruction (principal); R05 Cough; I10 Essential (primary) hypertension; Z87.891 Personal history of nicotine dependence
CPT/HCPCS: 70491; 80053; 85027; 87400; 87880; 96365; 96366; 96375; 99285; J0696; J7030